=== PATIENT | female | born 1995 | race Two or more races ===

== ENCOUNTER 2017-05-25 18:49 | Emergency (ER) | payer OTHER ==
--- NOTE | ~2017-05-25 | ER ---
PATIENT'S NAME: RANDI WOODRUFF [facility] AGE: 21 Y [address] ROOM: [place] [address] LOCATION: [facility] ADMIT DATE: 05/25/2017 ER/Outpatient Report DISCHARGE DATE: 05/25/2017 FAMILY PHYSICIAN: PHYSICIAN, NO ATTENDING PHYSICIAN: Wilmar Mabry Arrival Time: 1857 hours. Encounter Time: 1900 hours. SUBJECTIVE/CHIEF COMPLAINT: Headache. HISTORY OF PRESENT ILLNESS: The patient arrives to the emergency department via private auto with a chief complaint of headache for the last 6 days. She describes it initially as a left-sided pulsatile headache that began last Saturday and has waxed and waned several times, but is currently on the right hemisphere of her head. It remains pulsatile in nature. She has had some short-lived episodes of nausea, but denies vomiting. Some mild vertigo as well, but cannot identify any precipitating factors. It does not feel this is worsening in intensity, but she does say she has some light and sound sensitivity. Periodic blurred vision that she noticed acutely yesterday. 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 She denies any blurred vision at this time. PERTINENT REVIEW OF SYSTEMS: All systems reviewed by me and negative unless otherwise stated in the HPI above. PAST MEDICAL HISTORY: Denied by the patient. Last menstrual period was in 2014 as the patient is on the Depo shot and does not have periods as a result. PAST SURGICAL HISTORY: Denied by the patient. MEDICATIONS: [id number]-gagnxba Tylenol only, taken as directed. MEDICATION ALLERGIES: None. SOCIAL HISTORY: Denies smoking history. PATIENT'S NAME: RANDI WOODRUFF [facility] AGE: 21 Y [address] ROOM: [place] [address] LOCATION: [facility] ADMIT DATE: 05/25/2017 ER/Outpatient Report DISCHARGE DATE: 05/25/2017 FAMILY PHYSICIAN: PHYSICIAN, NO ATTENDING PHYSICIAN: Wilmar Mabry OBJECTIVE: VITAL SIGNS: Height 5 feet 2 inches, weight 61.3 kg, blood pressure 123/81, pulse 99 and regular, respiratory rate 16, temperature 97.9 degrees Fahrenheit taken tympanically, SpO2 at 95% on room air. Areli Coma Score of 15. Current pain at 7 or 8/10. GENERAL: The patient is well developed, well nourished, and in no acute distress. She is calm. Alert and oriented to person, place, and time. HEENT: Head is atraumatic and normocephalic. Eyes: Conjunctivae clear. No discharge. Pupils are PERRLA bilaterally. EOMFI bilaterally. No nystagmus. Ears showing tympanic membranes with good light reflex bilaterally. Auditory canals are patent bilaterally. Nose turbinates are pink and not swollen. No drainage. Throat with midline uvula. No exudates, erythema, or tonsillar hypertrophy. NECK: Supple and without lymphadenopathy. Trachea midline. No JVD. Full range of motion of the neck without discomfort. LUNGS: Clear to auscultation bilaterally. No wheezes, crackles, rhonchi, or stridor. Normal respiratory effort. HEART: Regular rate and rhythm. No S3, S4, or extra sounds. NEUROLOGIC: Cranial nerves 2 through 12 grossly intact. Strength 5/5 bilaterally in the upper and lower extremities for flexion and extension. Gait is steady and without assistance. Romberg's is negative. Deep tendon reflexes +2/4 at the ankle and knee levels bilaterally. EXTREMITIES: Without numbness or tingling. No lateralizing weakness. No clubbing, cyanosis, or edema. Full range of motion. +2/4 pulses at the radial and dorsalis pedis arteries bilaterally. ASSESSMENT: Migraine, status migrainosus, and headache. PLAN: Started an IV on the patient for 1 L bolus of normal saline. Provided 10 mg Compazine, 50 mg Benadryl, and 30 mg of Toradol for acute migraine medication. The patient tolerated this fairly well; but at 8 o'clock, she experienced a mild panic attack and had to be calmed down by nursing and providers present. This was easily obtainable, and the patient then became drowsy and went to sleep on the emergency cart. She remained easy to arouse. She then stated that her migraine/headache had resolved completely on reassessment. Drowsiness is an expected side effect of the medication she was given. Upon completion of the fluid bolus, she provided us with a name of a co-worker, Kane, at cellphone [phone], that she was comfortable having come pick her up and bring her home since in her drowsy state, I do not feel it is safe for her to drive. Discussed several providers with the patient before the administration of medication that she should establish with if she now has migraines as part of her background. Advised her to stay home from work PATIENT'S NAME: RANDI WOODRUFF [facility] AGE: 21 Y [address] ROOM: [place] [address] LOCATION: [facility] ADMIT DATE: 05/25/2017 ER/Outpatient Report DISCHARGE DATE: 05/25/2017 FAMILY PHYSICIAN: PHYSICIAN, NO ATTENDING PHYSICIAN: Wilmar Mabry tomorrow and minimize all stimuli. No electronics. Avoid light and sound. Emphasized rest. The patient verbalized understanding. Take all medications as prescribed. Discussed med risks, side effects, and benefits in detail. Get plenty of rest and liquids. Take Tylenol or ibuprofen as directed for fever or discomfort. Return to the emergency department or primary care provider if symptoms persist or worsen. The patient was discharged from the emergency department with resolution of her headache discomfort, improved. POLY DEJESUS PA-C FOR MD [facility]NAM/modl /[id number] d: 05/25/17 2254 t: 06/01/17 1204, OUTPATIENT REPORT
== END 2017-05-25 20:58 | disposition disaster alternative care site (69) ==
LOC: GMED 18:49 → EDBD 18:49 → GMED 20:58
DX: G43.901 Migraine, unspecified, not intractable, with status migrainosus (principal)
CPT/HCPCS: J0780; J1200; J1885; J7030